=== PATIENT | female | born 1945 | race Caucasian/White ===

== ENCOUNTER 2017-04-01 08:30 | Day surgery (SDC) | payer MEDICARE ==
[~2017-04-01 08:30] MED LIST: Acetaminophen TAB* 325 MG PO PRN; Buffered Lidocaine 0.9% SYRIN* 5 ML/SYR SYRINGE INTRADERM ONE; Buffered Lidocaine 0.9% SYRIN* 5 ML/SYR SYRINGE ONE; Cyclopentolate 1% OPTH.SOL* 2 ML BTL ONE; Ketorolac 0.5% OPHTH (NF) 0.5 % 5 ML BTL ONE; Lidocaine 1% MPF* 2 ML VIAL ONE; Lidocaine 2% EPI 1:200000 MPF* 20 ML VIAL ONE; Neomycin/Polymy/Dex OPTH.SUSP* MAXITROL 0.1% 5 ML ONE; Phenylephrine 2.5% OPTH.SOL* 2 ML BTL ONE; Povidone Iodine 5% OPTH* 30 ML BTL ONE; Proparacaine 0.5% OPHTH.SOL* 15 ML BTL ONE; acetaZOLAMIDE TAB* 250 MG ONE
[2017-04-01] MEDS ORDERED: Midazolam* 1 MG/ML 2 ML VIAL (2 MG) ONE (10:08)
[2017-04-01] MEDS ORDERED: fentaNYL* 50 MCG/ML 2 ML VIAL (100 MCG VIAL) ONE (10:18)
[2017-04-01 10:57] VITALS: BP 110/66
--- NOTE | 2017-04-02 03:39 | OP ---
DATE OF OPERATION: 04/01/17 [facility] DATE OF : 41 SURGEON: Seun Bright M.D. PREOPERATIVE DIAGNOSIS: Cataract, right eye. POSTOPERATIVE DIAGNOSIS: Cataract, right eye. OPERATIVE PROCEDURE: Phacoemulsification, right eye with IOL. DESCRIPTIO OF PROCEDURE: The patient was brought to the operating room after being given 1/2% Alcaine with epinephrine drops in the preoperative area. The eye was prepped and draped in the usual sterile fashion. Sterile drape and eyelid speculum were placed. Again, topical 1/2% Alcaine with epinephrine was given. A paracentesis incision was made at the 9 o'clock position with the No.75 blade. Clear cornea incision 2.2 x 2.2-mm was created at the 12 o'clock position starting at the anterior limbus using the 2.2-mm keratome. The anterior chamber was irrigated with 0.4 mL of 1% non-preservative intracameral lidocaine and filled with DisCoVisc. A capsulorrhexis was completed using the cystotome and the Utrata forceps. Hydrodissection was performed with balanced salt solution. The lens nucleus was removed with the Phacoemulsification handpiece without incident. Cortex was removed with the irrigation-aspiration handpiece. The capsular bag was re-inflated using DisCoVisc, and an [id number] implant was inserted with the shooter. The irrigation-aspiration handpiece was used to remove all residual DisCoVisc. The eye was refilled with balanced salt solution and the wound checked and found to be watertight. Topical Maxitrol drops were given. [id number]/[facility] #: [id number] MTDD
== END 2017-04-01 11:32 | disposition home or self-care (01) ==
LOC: OREAST 08:30
PROVIDERS: ATTEND Specialist
DX: H25.811 Combined forms of age-related cataract, right eye (principal); H25.812 Combined forms of age-related cataract, left eye; H16.223 Keratoconjunctivitis sicca, not specified as Sjogren's, bilateral; E03.9 Hypothyroidism, unspecified; F32.9 Major depressive disorder, single episode, unspecified; F41.9 Anxiety disorder, unspecified; Z87.891 Personal history of nicotine dependence
CPT/HCPCS: A9270-GY; J2250; J3010; V2632

== ENCOUNTER 2017-04-14 14:48 | Day surgery (SDC) | payer MEDICARE ==
[~2017-04-14 14:48] MED LIST changes: +Lidocaine 1% MPF wEPI 200,000* 30 ML SDV ONE
[2017-04-14] MEDS ORDERED: Midazolam* 1 MG/ML 2 ML VIAL (2 MG) ONE (16:09)
[2017-04-14 16:43] VITALS: BP 139/62
--- NOTE | 2017-04-15 05:45 | OP ---
DATE OF OPERATION: 04/14/17 [facility] DATE OF : 41 SURGEON: Seun Bright MD PREOPERATIVE DIAGNOSIS: Cataract, left eye. POSTOPERATIVE DIAGNOSIS: Cataract, left eye. OPERATIVE PROCEDURE: Phacoemulsification left eye, with IOL. DESCRIPTION OF PROCEDURE: The patient was brought to the operating room after being given 1/2% Alcaine with epinephrine drops in the preoperative area. The eye was prepped and draped in the usual sterile fashion. Sterile drape and eyelid speculum were placed. Again, topical 1/2% Alcaine with epinephrine was given. A paracentesis incision was made at the 3 o'clock position with the No.75 blade. Clear cornea incision 2.2 x 2.2-mm was created at the 6 o'clock position starting at the anterior limbus using the 2.2-mm keratome. The anterior chamber was irrigated with 0.4 mL of 1% non-preservative intracameral lidocaine and filled with DisCoVisc. A capsulorrhexis was completed using the cystotome and the Utrata forceps. Hydrodissection was performed with balanced salt solution. The lens nucleus was removed with the Phacoemulsification handpiece without incident. Cortex was removed with the irrigation-aspiration handpiece. The capsular bag was re-inflated using DisCoVisc and an [id number] 22.5 implant was inserted with the shooter. The irrigation-aspiration handpiece was used to remove all residual DisCoVisc. The eye was refilled with balanced salt solution and the wound checked and found to be watertight. Topical Maxitrol drops were given. [id number]/[facility] #: [id number] [facility]
== END 2017-04-14 17:05 | disposition home or self-care (01) ==
LOC: OREAST 14:48
PROVIDERS: ATTEND Specialist
DX: H25.812 Combined forms of age-related cataract, left eye (principal); Z96.1 Presence of intraocular lens; H16.223 Keratoconjunctivitis sicca, not specified as Sjogren's, bilateral; E03.9 Hypothyroidism, unspecified; F41.9 Anxiety disorder, unspecified; M81.0 Age-related osteoporosis without current pathological fracture; F31.9 Bipolar disorder, unspecified; E78.2 Mixed hyperlipidemia; K21.9 Gastro-esophageal reflux disease without esophagitis; Z87.891 Personal history of nicotine dependence
CPT/HCPCS: A9270-GY; J2001; J2250; V2632

== ENCOUNTER 2017-06-14 12:46 | Emergency (ER) | payer MEDICARE ==
[2017-06-14 15:02] VITALS: BP 130/82
--- NOTE | 2017-06-14 15:22 | RAD ---
INDICATION: Right knee and leg pain after a fall COMPARISON: None TECHNIQUE: 4 view radiograph of the right knee and 2 views of the right lower leg. FINDINGS: The visualized bones are well-corticated and properly aligned. The joint spaces are properly maintained. There is no radiographic evidence of joint effusion. There is no acute fracture, dislocation or other focal bony abnormality. IMPRESSION: Normal radiographic series of the right knee and right lower leg. If the patient's symptoms persist, follow-up imaging is recommended.
--- NOTE | 2017-06-14 15:47 | UC ---
Lower Extremity/Ankle HPI - HPI Summary HPI Summary: ONE WEEK AGO SLIPPED AND FELL INJURED RIGHT LEG. BRUISING TO LEG WITH MILD SWELLING AND CONTINUED PAIN WITH AMBULATION - History of Current Complaint Hx Obtained From: Patient, Family/Right Of Way Agent Onset/Duration: Sudden Onset, Lasting Weeks, Still Present Severity Initially: Mild Severity Currently: Mild Aggravating Factor(s): Standing, Ambulation Able to Bear Weight: Yes - Risk Factors Gout Risk Factors: Negative DVT Risk Factors: Negative Septic Arthritis Risk Factor: Negative <Timo Carr - Last Filed: 06/14/17 15:43> <Abhilash Toth - Last Filed: 06/15/17 18:45> - History of Current Complaint Chief Complaint: UCLowerExtremity Stated Complaint: FELL AND INJURED LEG Time Seen by Provider: 06/14/17 14:09 - Allergies/Home Medications Allergies/Adverse Reactions: Allergies Allergy/AdvReac Type Severity Reaction Status Date / Time No Known Allergies Allergy Verified 06/14/17 13:17 PMH/Surg Hx/FS Hx/Imm Hx Previously Healthy: Yes - Surgical History Surgical History: Yes Surgery Procedure, Year, and Place: hysterectomy. tonsillectomy. gall bladder removal. bladder surgery for prolapse x2 - has re-prolapsed. oral surgery for gum disease - Family History Known Family History: Negative: Blood Disorder - Social History Occupation: Employed Full-time Lives: With Family Alcohol Use: None Substance Use Type: None Smoking Status (MU): Former Smoker Amount Used/How Often: smoked on and off for 30 yearsapprox 1 pack per week When Did the Patient Quit Smoking/Using Tobacco: 1994 <Timo Carr - Last Filed: 06/14/17 15:43> Review of Systems Constitutional: Negative Skin: Negative Eyes: Negative ENT: Negative Respiratory: Negative Cardiovascular: Negative Gastrointestinal: Negative Genitourinary: Negative Motor: Negative Neurovascular: Negative Musculoskeletal: Arthralgia, Edema, Myalgia Neurological: Negative Psychological: Negative Is Patient Immunocompromised?: No All Other Systems Reviewed And Are Negative: Yes <Timo Carr - Last Filed: 06/14/17 15:43> Physical Exam Triage Information Reviewed: Yes Appearance: Well-Appearing, No Pain Distress, Well-Nourished Vital Signs: Initial Vital Signs Temp 98.4 F 06/14/17 13:13 Pulse 67 06/14/17 13:13 Resp 16 06/14/17 13:13 BP 113/62 06/14/17 13:13 Pulse Ox 95 06/14/17 13:13 Vital Signs Reviewed: Yes Eye Exam: Normal ENT Exam: Normal ENT: Positive: Normal ENT inspection Dental Exam: Normal Neck exam: Normal Neck: Positive: Supple, Nontender Respiratory Exam: Normal Respiratory: Positive: Chest non-tender, Lungs clear, Normal breath sounds, No respiratory distress, No accessory muscle use Cardiovascular Exam: Normal Cardiovascular: Positive: RRR, No Murmur, Pulses Normal, Brisk Capillary Refill Abdominal Exam: Normal Musculoskeletal Exam: Normal Musculoskeletal: Positive: Strength Intact, ROM Intact Neurological Exam: Normal Psychological Exam: Normal Skin: Positive: Other - BRUISING RIGHT ANTERIOR TIBIA <Timo Carr - Last Filed: 06/14/17 15:43> Vital Signs: Initial Vital Signs Temp 36.9 C 06/14/17 13:13 Pulse 67 06/14/17 13:13 Resp 16 06/14/17 13:13 BP 113/62 06/14/17 13:13 Pulse Ox 95 06/14/17 13:13 <Abhilash Toth - Last Filed: 06/15/17 18:45> Lower Extremity Course/Dx - Differential Dx/Diagnosis Differential Diagnosis/HQI/PQRI: Sprain, Strain Provider Diagnoses: RIGHT LEG CONTUSION; RIGHT KNEE PAIN <Timo Carr - Last Filed: 06/14/17 15:43> Discharge <Timo Carr - Last Filed: 06/14/17 15:43> <Abhilash Toth - Last Filed: 06/15/17 18:45> - Discharge Plan Condition: Stable Disposition: HOME Patient Education Materials: Contusion in Adults (ED), Knee Pain (ED) Referrals: Bharti Blue MD [Primary Care Provider] - Cosme Faustin MD [Medical Doctor] -
== END 2017-06-14 15:45 | disposition home or self-care (01) ==
LOC: UCEAST 12:46
DX: S80.11XA Contusion of right lower leg, initial encounter (principal); M25.561 Pain in right knee; W19.XXXA Unspecified fall, initial encounter; Y92.9 Unspecified place or not applicable; Z87.891 Personal history of nicotine dependence
CPT/HCPCS: 99212; G0463